=== PATIENT | female | born 1980 | race Caucasian/White ===

== ENCOUNTER → 2023-10-10 06:40 | Outpatient (REF) | payer OTHER, SELFPAY | LOC: HWWDC 06:40 | PROVIDERS: ATTENDING PHYSICIAN Obstetrics & Gynecology Gynecology; FAMILY PHYSICIAN Family Medicine | DX: Z12.31 Encounter for screening mammogram for malignant neoplasm of breast (principal) | CPT/HCPCS: 77063; 77067 ==

== ENCOUNTER 2025-03-23 11:24 | Emergency (ER) | payer OTHER, SELFPAY ==
[2025-03-23 11:38] VITALS: BP 133/84
--- NOTE | 2025-03-23 13:22 | ED.GENMED ---
History of Present Illness
General
Chief Complaint: Rabies
Source: patient
Exam Limitations: none
Time Seen by Provider: 03/23/25 12:14
Nursing documentation reviewed up to this point in time: agreed with
History of Present Illness
History of Present Illness:
44-year-old female with no reported chronic medical issues presents for rabies vaccination after finding bat in house. Bat was noted in house last night. No bites noted but patient came to ER for rabies prophylaxis. Patient has no acute
complaints.
Past History
Past History
ED Past Medical History: None
ED Past Surgical History: None
Social History
Tobacco: Non-smoker
Personal:
Living: with family
Review of Systems
Review of Systems
All Other Systems: ROS reviewed and negative except as documented in HPI and ROS
Phy Exam
Physical Exam
Physical Exam:
General: Well appearing and non-toxic
HEENT: protecting airway
Neck: appears supple
CV: No evidence of cyanosis
Resp: No accessory muscle use
Abd: Non-distended
Extremities: No deformities
Neuro: Alert
Psych: Normal affect
Skin: Intact, no bites noted
Scores
Heart Failure Risk
Heart Failure Risk Score: Not Applicable
Heart Score for Chest Pain Patients
STEMI patient?: Not applicable
Withdrawal Assessment of Alcohol
Withdrawal Assessment Completed?: Not applicable
Course
Orders/Labs/Results
Orders:
Orders
03/23/25 12:27
Tetanus/Diphth/Acelpertussis [Adacel] 0.5 ml IM .ONCE ONE
03/23/25 12:32
Rabies Immune Globulin/Pf [HyperRAB] 1,800 unit IM NOW STA
03/23/25 12:45
Rabies Vaccine (Pcec)/Pf [Rabavert Rabies Vacc W-Diluent] 2.5 unit IM .ONCE ONE
Vital Signs
Initial and Last Documented VS:
Initial Vital Signs
Temp Pulse Resp BP Pulse Ox
36.9 C 82 18 133/84 94
03/23/25 11:38 03/23/25 11:38 03/23/25 11:38 03/23/25 11:38 03/23/25 11:38
Last Documented Vital Signs
Temp Pulse Resp BP Pulse Ox
36.9 C 82 18 133/84 94
03/23/25 11:38 03/23/25 11:38 03/23/25 11:38 03/23/25 11:38 03/23/25 11:38
MDM/Problems Addressed
Differential Diagnosis Includes:
Rabies prophylaxis
MDM/Problems Addressed:
44-year-old female presents for rabies prophylaxis after bat in the house. No bites noted or other acute complaints. Will update tetanus and rabies prophylaxis. Discharged with plan for postexposure prophylaxis vaccination series.
*Pulse Oximetry
SaO2: 94
Oxygen Mode of Delivery: Room air
Patient hypoxic: no (94%)
*Critical Care Note
Total Time (30-74mins, 75-104mins- exclusive of procedures): Not Applicable
Data Reviewed
Source: patient and family
ED Attending Note
-
Portions of this chart may have been created with voice recognition software.� Occasional wrong word or��sound alike� substitutions may have occurred due to the inherent limitations of voice recognition software.
Discharge Plan
Departure
Patient Disposition: Home (Routine Discharge)
Date of Disposition: 03/23/25
Time of Disposition: 12:28
Patient with high blood pressure during this ER visit?: No
Discharge Problem:
Exposure to bat without known bite, Need for post exposure prophylaxis for rabies
Instructions: Rabies
Prescriptions:
New
RabAvert (PF) 2.5 unit Suspension For Reconstitution
1 ml IM . DIRECTED Qty: 3 0RF
Rx Instructions:
See Rabies Vaccine Post Exposure Prophylaxis Instruction Sheet for Dosing Instructions
No Action
Tablet Tab
1 1 each PO DAILY
labetalol 200 MG tablet
200 mg PO BID Qty: 60 0RF
oxycodone-acetaminophen 5 MG/325 MG tablet
1 tab PO Q4HPRN PRN (Reason: moderate pain) Qty: 30 0RF
ibuprofen 600 MG tablet
600 mg PO Q4HPRN PRN (Reason: cramps) 0RF
Referrals:
Naomi Richmond DO [Family Provider, Family Practice]
Stand Alone Forms: Rabies Vaccine Post Exp Dosing
Interventions
Interventions:
*Risk Screen - Suicide Last Done: 03/23/25 11:38
*General Assessment Last Done: 03/23/25 11:38
Discharge Date and Time
Print Language: BRITISH
[2025-03-23] MEDS: RABAVERT RABIES VACC W-DILUENT 2.5 UNIT IM (13:24)
[2025-03-23] MEDS: ADACEL 0.5 ML IM (13:28)
== END 2025-03-23 13:45 | disposition home or self-care (01) ==
LOC: EMR 11:24
PROVIDERS: EMERGENCY PHYSICIAN Emergency Medicine; FAMILY PHYSICIAN Family Medicine
DX: Z20.3 Contact with and (suspected) exposure to rabies (principal); Z23 Encounter for immunization; Z29.14 Encounter for prophylactic rabies immune globulin
CPT/HCPCS: 90471; 96372; 99284; 90375; 90675; 90715

== ENCOUNTER 2025-03-30 14:06 | Emergency (ER) | payer OTHER, SELFPAY ==
[2025-03-30 14:18] VITALS: BP 130/69
[2025-03-30 14:21] VITALS: BMI 36.5
--- NOTE | 2025-03-30 14:38 | ED.GENMED ---
History of Present Illness
General
Chief Complaint: Rabies
Source: patient
Exam Limitations: none
Time Seen by Provider: 03/30/25 14:27
Nursing documentation reviewed up to this point in time: agreed with
History of Present Illness
History of Present Illness:
Patient is a 44-year-old female who presents to the emergency department for third rabies vaccination. Patient's son woke up to a bat in his room on 03/23/2025. Patient had no known interaction with bat however given it was found in home they opted
to pursue rabies vaccination series out of precaution. She has tolerated dose 1 and dose 2 of the rabies vaccination well. She is otherwise up-to-date on other vaccinations.
No other concerns today.
Past History
Past History
ED Past Medical History: None
ED Past Surgical History: None
Social History
Tobacco: Non-smoker
Personal:
Living: with family
Review of Systems
Review of Systems
Allergies reviewed?: Yes
All Other Systems: ROS reviewed and negative except as documented in HPI and ROS
Phy Exam
Physical Exam
Physical Exam:
Vitals: Patient's vital signs are stable. Afebrile
General: Patient is well appearing, no acute distress
Skin: Warm and dry, no rashes or lesions
Head: Normocephalic, atraumatic
Throat: Protecting airway
Neck: Normal ROM.
Cardiac: Regular rate
Pulm: No apparent respiratory distress
Abdomen: Nondistended
Extremities: No evidence of cyanosis or edema
Neuro: Grossly intact
Psychiatric: Normal affect.
Course
Orders/Labs/Results
Orders:
Orders
03/30/25 14:45
Rabies Vaccine (Pcec)/Pf [Rabavert Rabies Vacc W-Diluent] 2.5 unit IM .ONCE ONE
Vital Signs
Initial and Last Documented VS:
Initial Vital Signs
Temp Pulse Resp BP Pulse Ox
98.2 F 88 16 130/69 98
03/30/25 14:18 03/30/25 14:18 03/30/25 14:18 03/30/25 14:18 03/30/25 14:18
Last Documented Vital Signs
Temp Pulse Resp BP Pulse Ox
98.2 F 88 16 130/69 98
03/30/25 14:18 03/30/25 14:18 03/30/25 14:18 03/30/25 14:18 03/30/25 14:39
MDM/Problems Addressed
Differential Diagnosis Includes:
Not limited to: Rabies prophylaxis, bat exposure, etc.
MDM/Problems Addressed:
44-year-old female presenting for dose 3 of rabies vaccination series after bat exposure 1 week ago. No evidence of bite or scratch from bat. Patient tolerated prior vaccinations well. Dose #3 of rabies vaccination received in the ED today
without complication. Discussed remainder of vaccination series with patient. She will return in 1 week for final dose. Return precautions discussed.
Chronic conditions affecting care:
N/A
Acute Exacerbation and/or Progression of Chronic Illness:
N/A
*Pulse Oximetry
SaO2: 98
Oxygen Mode of Delivery: Room air
Patient hypoxic: no
*Critical Care Note
Total Time (30-74mins, 75-104mins- exclusive of procedures): Not Applicable
ED Attending Note
-
Portions of this chart may have been created with voice recognition software.� Occasional wrong word or��sound alike� substitutions may have occurred due to the inherent limitations of voice recognition software.
Discharge Plan
Departure
Patient Disposition: Home (Routine Discharge)
Date of Disposition: 03/30/25
Time of Disposition: 14:46
Patient with high blood pressure during this ER visit?: Yes
Discharge Problem:
Rabies vaccine administered
Instructions: BLOOD PRESSURE, Rabies
Prescriptions:
No Action
ibuprofen 600 MG tablet
600 mg PO Q4HPRN PRN (Reason: cramps) 0RF
RabAvert (PF) 2.5 unit Suspension For Reconstitution
1 ml IM . DIRECTED Qty: 3 0RF
Rx Instructions:
See Rabies Vaccine Post Exposure Prophylaxis Instruction Sheet for Dosing Instructions
multivitamin Tablet
1 tab PO DAILY
Wegovy 2.4 mg/0.75 mL Pen Injector
2.4 mg SC QWEEK
Stand Alone Forms: Rabies Vaccine Post Exp Dosing
Activity Restrictions/Additional Instructions:
RETURN TO THE EMERGENCY DEPARTMENT WITH ANY RASH OR EVIDENCE OF INFECTION SURROUNDING VACCINATION SITE OR ANY OTHER CONCERNS
- As discussed that you received dose 3 of the rabies vaccination series today in the emergency department. You will require your fourth and final dose next Friday on 04/06/25. Please return to the emergency department for this vaccination.
- Follow-up with primary care as needed for further evaluation/management
Monitor your symptoms closely and return to the emergency department with any acute worsening/new symptoms or any other concerns.
Interventions
Interventions:
*Risk Screen - Suicide Last Done: 03/30/25 14:18
*Neglect/Abuse Screening Last Done: 03/30/25 14:18
*Nursing Disposition Last Done: 03/30/25 14:57
Discharge Date and Time
Discharge Date/Time: 03/30/25 14:58
Print Language: YI
[2025-03-30] MEDS: RABAVERT RABIES VACC W-DILUENT 2.5 UNIT IM (14:47)
== END 2025-03-30 14:58 | disposition home or self-care (01) ==
LOC: EMR 14:06
PROVIDERS: EMERGENCY PHYSICIAN Student in an Organized Health Care Education/Training Program; FAMILY PHYSICIAN Family Medicine
DX: Z20.3 Contact with and (suspected) exposure to rabies (principal); Z23 Encounter for immunization
CPT/HCPCS: 90471; 99281; 90675

== ENCOUNTER 2025-04-07 08:07 | Outpatient (RCR) | payer OTHER, SELFPAY ==
[2025-03-25 15:13] VITALS: BP 132/79
[2025-03-25] MEDS: RABAVERT RABIES VACC W-DILUENT 2.5 UNIT IM (15:24)
[2025-04-06 15:34] VITALS: BP 148/66
[2025-04-06] MEDS: RABAVERT RABIES VACC W-DILUENT 2.5 UNIT IM (15:41)
== END 2025-04-07 08:08 | disposition home or self-care (01) ==
LOC: OID 08:07
PROVIDERS: ATTENDING PHYSICIAN Emergency Medicine
DX: Z20.3 Contact with and (suspected) exposure to rabies (principal); Z23 Encounter for immunization
CPT/HCPCS: 90471; 90675

== ENCOUNTER → 2025-06-14 12:28 | Outpatient (REF) | payer OTHER, SELFPAY | LOC: HWWDC 12:28 | PROVIDERS: ATTENDING PHYSICIAN Obstetrics & Gynecology Gynecology; FAMILY PHYSICIAN Family Medicine | DX: Z12.31 Encounter for screening mammogram for malignant neoplasm of breast (principal) | CPT/HCPCS: 77063; 77067 ==